=== PATIENT | male | born 1945 | race Two or more races ===

== ENCOUNTER 2020-08-21 12:45 | Inpatient (IN) | payer OTHER ==
[~2020-08-21] VITALS: Ht 170.2 cm; Wt 77.1 kg
[2020-08-21] MEDS ORDERED: FOLIC ACID20 MG PO (15:49)
[2020-08-21] MEDS ORDERED: LAMOTRIGINE100 MG PO (15:49)
[2020-08-29] MEDS ORDERED: LISINOPRIL10 MG (08:10)
[2020-08-29] MEDS ORDERED: FERROUS SULFAT325 MG (08:10)
[2020-09-01] MEDS ORDERED: AMOX1TAB5 PO (15:06)
[2020-09-01] MEDS ORDERED: OXYC1TAB9 PO (15:06)
[2020-09-01] MEDS ORDERED: HYOSCYAMINE0.125 M1 SL (15:06)
[2020-09-01] MEDS ORDERED: INTESTINEX680 M1 PO (15:07)
[2020-09-01] MEDS ORDERED: PROTONIX40 MG PO (15:07)
== END 2020-09-01 18:11 | disposition home or self-care (01) | DRG 331 ==
LOC: O/R 08-28 07:38 → SURH 08-28 07:38
PROVIDERS: ADMIT Surgery; ATTEND Surgery
PROC: 0DBN4ZZ Excision of Sigmoid Colon, Percutaneous Endoscopic Approach (ICD-10-PCS; 2020-08-28)
PROC: 07BC4ZX Excision of Pelvis Lymphatic, Percutaneous Endoscopic Approach, Diagnostic (ICD-10-PCS; 2020-08-28)
PROC: 0TQB4ZZ Repair Bladder, Percutaneous Endoscopic Approach (ICD-10-PCS; 2020-08-28)
PROC: 0DJD8ZZ Inspection of Lower Intestinal Tract, Via Natural or Artificial Opening Endoscopic (ICD-10-PCS; 2020-08-28)
PROC: 0DTM4ZZ Resection of Descending Colon, Percutaneous Endoscopic Approach (ICD-10-PCS; principal; 2020-08-28 13:45)
DX: C18.6 Malignant neoplasm of descending colon (principal); I10 Essential (primary) hypertension

== ENCOUNTER 2020-09-10 09:12 | Outpatient (CLI) | payer OTHER ==
[~2020-09-10 09:12] MED LIST: AMOX1TAB5 PO; FERROUS SULFAT325 MG; FOLIC ACID20 MG PO; HYOSCYAMINE0.125 M1 SL; INTESTINEX680 M1 PO; LAMOTRIGINE100 MG PO; LISINOPRIL10 MG; OXYC1TAB9 PO; PROTONIX40 MG PO
== END 2020-09-10 09:16 | disposition home or self-care (01) ==
LOC: RX STUDY 09:12
PROVIDERS: ATTEND Surgery
DX: C18.6 Malignant neoplasm of descending colon (principal); S37.20XA Unspecified injury of bladder, initial encounter
CPT/HCPCS: 51600; 74430; Q9958

== ENCOUNTER 2021-10-14 07:30 | Day surgery (SDC) | payer OTHER | END 2021-10-14 11:00 | disposition home or self-care (01) | LOC: AMB-ENDOS 07:30 | PROVIDERS: ATTEND Surgery | DX: K62.89 Other specified diseases of anus and rectum (principal); Z20.822 Contact with and (suspected) exposure to COVID-19 ==